=== PATIENT | male | born 1990 | race Caucasian/White ===

== ENCOUNTER 2019-01-19 19:59 | Emergency (ER) | payer OTHER ==
[2019-01-19 20:17] VITALS: BP 144/89; PULSE 88; TEMP 98.9; BMI 25.7
--- NOTE | 2019-01-19 20:21 | PDOC ---
Attending Attestation - HPI HPI: 01/19/19 21:12 Patient is a 28 year old male with no significant past medical history who presents to the ED with complaints of chest discomfort that began 30 minutes prior to ED arrival. Patient reports exercising 30 minutes prior to ED arrival when he suddenly began to experience chest discomfort that he states feels like he is unable to feel the inside of his chest. He reports becoming increasingly worried about the sensation prompting him to come into the ED for further evaluation. Patient states he takes vyvanse but states he has not been compliant with his medication for 3 days. Denies Sob. Denies nausea, vomiting. Denies fevers, chills. Denies contact with sick individuals, out of state travelling. Denies dysuria, hematuria. Denies diarrhea, constipation. Denies any other symptoms. Allergies: Cephalexin Social history: No smoking. No alcohol. No illicit drugs. Surgical history: None PMD: None - Physicial Exam PE: 01/19/19 21:13 Agree with residents Physical Exam. <Wesley Canseco - Last Filed: 01/19/19 21:12> - Resident Resident Name: Cody Herzog - ED Attending Attestation I have performed the following: I have examined & evaluated the patient, The case was reviewed & discussed with the resident, I agree w/resident's findings & plan - Medical Decision Making 01/19/19 21:17 28-year-old otherwise healthy male with chest pain while running on a treadmill Chest x-ray shows no acute pulmonary disease EKG showed a normal sinus rhythm at 90 bpm with no acute ST elevations Patient is now asymptomatic Plan for troponin 2 due to proximity of symptoms, if patient remains asymptomatic and workup negative will discharge with remainder of workup recommended on an outpatient basis <Nadia Rodriguez - Last Filed: 01/19/19 21:18>
[2019-01-19] MEDS ORDERED: SODIUM CHLORIDE 1,000 ML IV STA (20:23)
[2019-01-19 20:48] LABS: BASO % 1.2 % (0-2.0); EOS % 0.9 % (0-4.5); HEMOGLOBIN 14.4 GM/dL (11.7-16.9); LYMPH % 22.9 % (8-40); MCH 31.5 pg (25.7-33.7); MCHC 35.1 g/dl (32.0-35.9); MEAN CELL VOLUME 89.7 fl (80-96); MONO % 6.9 % (3.8-10.2); NEUT % 68.1 % (42.8-82.8); PLATELET COUNT 268 K/MM3 (134-434); RBC 4.57 M/mm3 (4.00-5.60); RDW 12.8 % (11.9-15.9); WHITE BLOOD COUNT 8.6 K/mm3 (4.0-10.0)
[2019-01-19 21:02] LABS: INR 0.9 (0.83-1.09); PROTHROMBIN TIME (PATIENT) 10.6 SEC (9.7-13.0)
[2019-01-19 21:13] LABS: ALBUMIN 3.8 g/dl (3.4-5.0); ALK PHOS 81 U/L (45-117); ANION GAP 7 MMOL/L (8-16); BILIRUBIN,TOTAL 0.3 mg/dL (0.2-1); BLOOD UREA NITROGEN 19 mg/dL (7-18); CALCIUM 8.2 mg/dL (8.5-10.1); CHLORIDE 108 mmol/L (98-107); CO2 26 mmol/L (21-32); CREATININE 0.8 mg/dL (0.55-1.3); GLUCOSE,RANDOM 122 mg/dL (74-106); MAGNESIUM 2.2 mg/dL (1.8-2.4); POTASSIUM 3.4 mmol/L (3.5-5.1); SGOT/AST 17 U/L (15-37); SGPT/ALT 29 U/L (13-61); SODIUM 141 mmol/L (136-145); TOT PROT 6.5 g/dl (6.4-8.2)
--- NOTE | 2019-01-19 21:14 | PDOC ---
History of Present Illness - General Chief Complaint: Chest Pain Stated Complaint: CHEST PAIN Time Seen by Provider: 01/19/19 20:16 History Source: Patient Exam Limitations: No Limitations - History of Present Illness Initial Comments: 01/19/19 21:09 Patient is a 28M with no significant medical history here today complaining of chest pain that onset 30 minutes prior to arrival. Patient reports a tightness in his chest that onset after a half hour of running on a treadmill. Denies fevers, chills, nausea, vomiting, cough. Endorses associated shortness of breath. Denies leg swelling, history of blood clots. Denies family medical history of cardiac issues and sudden . Denies cocaine use, does take vyvanse regularly but not for the past three days. No smoking history, denies other illicits. Denies facial, arm, leg weakness. Denies motor strength changes. Past History - Past Medical History Allergies/Adverse Reactions: Allergies Allergy/AdvReac Type Severity Reaction Status Date / Time cephalexin [From Keflex] Allergy Intermediate Hives Verified 01/19/19 20:18 Home Medications: Ambulatory Orders NK [No Known Home Medication] 01/19/19 COPD: No - Immunization History Immunization Up to Date: Yes - Suicide/Smoking/Psychosocial Hx Smoking History: Unknown if ever smoked Review of Systems - Review of Systems Able to Perform ROS?: Yes Comments:: 01/19/19 21:13 GENERAL/CONSTITUTIONAL: No fever or chills. No weakness. HEAD, EYES, EARS, NOSE AND THROAT: No change in vision. No sore throat. CARDIOVASCULAR: +chest pain +shortness of breath RESPIRATORY: No cough, wheezing, or hemoptysis. GASTROINTESTINAL: No nausea, vomiting, diarrhea or constipation. GENITOURINARY: No dysuria, frequency, or change in urination. MUSCULOSKELETAL: No joint or muscle swelling or pain. No neck or back pain. SKIN: No rash NEUROLOGIC: No headache, vertigo, loss of consciousness, or change in strength/ sensation. ENDOCRINE: No increased thirst. No abnormal weight change HEMATOLOGIC/LYMPHATIC: No anemia, easy bleeding, or history of blood clots. ALLERGIC/IMMUNOLOGIC: No hives or skin allergy. *Physical Exam - Vital Signs Last Vital Signs Temp Pulse Resp BP Pulse Ox 98.9 F 88 20 144/89 100 01/19/19 20:15 01/19/19 20:15 01/19/19 20:15 01/19/19 20:15 01/19/19 20:15 - Physical Exam Comments: 01/19/19 21:14 GENERAL: Awake, alert, and fully oriented, in no acute distress HEAD: No signs of trauma, normocephalic, atraumatic EYES: PERRLA, EOMI, sclera anicteric, conjunctiva clear ENT: Auricles normal inspection, hearing grossly normal, nares patent, oropharynx clear without exudates. Moist mucosa NECK: Normal ROM, supple, no lymphadenopathy, JVD, or masses LUNGS: No distress, speaks full sentences, clear to auscultation bilaterally HEART: Regular rate and rhythm, normal S1 and S2, no murmurs, rubs or gallops, peripheral pulses normal and equal bilaterally. ABDOMEN: Soft, nontender, normoactive bowel sounds. No guarding, no rebound. No masses EXTREMITIES: Normal inspection, Normal range of motion, no edema. No clubbing or cyanosis. NEUROLOGICAL: Cranial nerves II through XII grossly intact. Normal speech, normal gait, no focal sensorimotor deficits SKIN: Warm, Dry, normal turgor, no rashes or lesions noted. Moderate Sedation - Procedure Monitoring Vital Signs: Procedure Monitoring Vital Signs Temperature 98.9 F 01/19/19 20:15 Pulse Rate 88 01/19/19 20:15 Respiratory Rate 20 01/19/19 20:15 Blood Pressure 144/89 01/19/19 20:15 O2 Sat by Pulse Oximetry (%) 100 01/19/19 20:15 Heart Score/ECG Review - History History: Slightly suspicious - Electrocardiogram EKG: Normal - Age Age: </= 45 - Risk Factors Based on the list above the patient has:: No risk factors known - Troponin Troponin: </= normal limit - Score Heart Score - Total: 0 ED Treatment Course - LABORATORY CBC & Chemistry Diagram: 01/19/19 20:31 01/19/19 20:31 - ADDITIONAL ORDERS Additional order review: Laboratory Results 01/19/19 20:31 PT with INR 10.60 INR 0.90 01/19/19 20:31 RBC 4.57 MCV 89.7 MCHC 35.1 RDW 12.8 MPV 9.0 Neutrophils % 68.1 Lymphocytes % 22.9 Monocytes % 6.9 Eosinophils % 0.9 Basophils % 1.2 - RADIOLOGY Radiology Studies Ordered: Category Date Time Status CHEST PA & LAT [RAD] Stat Radiology 01/19/19 20:42 Taken Medical Decision Making - Medical Decision Making 01/19/19 21:14 Patient is 28M here today with chest pain. Vitals normal and stable. PERC negative. Dissection considered, do not believe workup necessary given history and physical. No viral prodrome suggestive of pericarditis. DDx includes, but is not limited to: acs, arrhythmia, ptx, dehydration, rhabdo. Will HEART pathway and likely discharge. EKG shows nsr with no st elevations/depressions. Normal axis. Normal intervals. No significant t wave abnormalities. CXR shows no ptx, no mediastinal widening. Pending labs. 01/20/19 00:29 Trop negx2 CMP reassuring. Pain has resolved. Will discharge with cardiology and pcp follow up. Given return precautions. *DC/Admit/Observation/Transfer Diagnosis at time of Disposition: Chest pain - Discharge Dispostion Disposition: HOME Condition at time of disposition: Good Decision to Admit order: No - Referrals Referrals: Paresh Gross MD [Staff Physician] - - Patient Instructions Printed Discharge Instructions: DI for Chest Pain Additional Instructions: Please follow up with your primary care physician and the staff air tactical officer below. Please return if you have any new, worsening or concerning symptoms, especially increasing pain, fever and shortness of breath. - Post Discharge Activity Forms/Work/School Notes: Back to Work
--- NOTE | 2019-01-20 10:50 | EKG ---
Test Reason : Blood Pressure : / mmHG Vent. Rate : 090 BPM Atrial Rate : 090 BPM P-R Int : 136 ms QRS Dur : 094 ms QT Int : 378 ms P-R-T Axes : 048 026 029 degrees QTc Int : 462 ms NORMAL SINUS RHYTHM INCOMPLETE RIGHT BUNDLE BRANCH BLOCK BORDERLINE ECG NO PREVIOUS ECGS AVAILABLE Confirmed by JOSE AMOR, HALLEY ([id number]) on 01/20/2019 10:50:06 AM Referred By: Confirmed By:HALLEY GARCIA MD
== END 2019-01-20 00:37 | disposition home or self-care (01) ==
LOC: JER 19:59
PROC: 3E0337Z Introduction of Electrolytic and Water Balance Substance into Peripheral Vein, Percutaneous Approach (ICD-10-PCS; principal; 2019-01-19)
DX: R07.9 Chest pain, unspecified (principal)
CPT/HCPCS: 36415; 71046-TC-FY; 80053; 82550; 82553; 83735; 84484; 85025; 85610; 93005; 93010; 99282-25; J7030